=== PATIENT | male | born 1985 | race Caucasian/White ===

== ENCOUNTER 2019-02-15 20:35 | Emergency (ER) | payer OTHER ==
[~2019-02-15] VITALS: Ht 182.9 cm; Wt 81.7 kg
[~2019-02-15 20:35] MED LIST: Prednisone20 MG PO
== END 2019-02-15 22:05 | disposition home or self-care (01) ==
LOC: ER 20:35
DX: R53.83 Other fatigue (principal); Z87.891 Personal history of nicotine dependence
CPT/HCPCS: 99283